=== PATIENT | female | born 1970 | race Caucasian/White ===

== ENCOUNTER → 2019-10-05 10:24 | Outpatient (CLI) | payer MEDICARE, MEDICAID, SELFPAY ==
--- NOTE | 2019-10-05 10:43 | NM_ITS ---
CLINICAL: 49-year-old female with reported history of thyroid nodularity. I-123 THYROID UPTAKE and SCAN COMPARISON: None available FINDINGS: The patient was administered a 282 uCi I-123 capsule by mouth. The 4-hour I-123 radioactive iodine thyroidal uptake was calculated to be 8.4 % (normal 5 to 25 %). The 24-hour I-123 radioactive iodine thyroidal uptake was calculated to be 29.4 % (normal 5 to 40 %). The I-123 thyroid scan demonstrates mild nonuniform radiopharmaceutical concentration throughout both lobes of a U-shaped thyroid gland. There is questionable evidence of hypofunctioning nodules involving the inferior pole of the right-left thyroid lobes. NM/Thyroid Uptake Single or Mult IMPRESSION: 1. NORMAL 4- and 24-hour I-123 radioactive iodine thyroidal uptakes. 2. The I-123 thyroid scan appears to represent the presence of a nontoxic multinodular goiter. Discrete hypofunctioning, cold nodules are potentially defined in the inferior pole of the right-left thyroid beds as described above. Electronically Signed: Cruz Spicer DO at 23:06 EST Tel , Service support ,
[2019-10-05 11:53] LABS: Free T3 2.9 pg/mL (2.18-3.98)
== END ==
PROVIDERS: Family Provider Family Medicine; PCP Family Medicine; Referring Provider Internal Medicine Endocrinology, Diabetes & Metabolism; Visit Provider Internal Medicine Endocrinology, Diabetes & Metabolism
DX: E04.2 Nontoxic multinodular goiter (principal)
CPT/HCPCS: 36415; 78012; 84481; A9516